=== PATIENT | male | born 1960 | race African-American/Black ===

== ENCOUNTER → 2018-03-27 | Outpatient (CLI) | payer OTHER ==
[~2018-03-27] MED LIST: ACIPHEX 20 MG T20 M1 PO; ASPIRIN EC81 M1 PO; CRESTOR10 MG PO; DIOVAN320 MG PO; OMEGA 3-6-9 CO1 EACH PO
--- NOTE | 2018-03-27 14:32 | EXE ---
[place] [address] STRESS ECHOCARDIOGRAM Name: RAVEN CAMARILLO Room: [facility]#: [id number] Admission: 03/27/18 Attend Phys: Jayden Grimm MD Discharge: Date of : 56 Date of Service: 03/27/18 1432 Report #: [id number] THIS REPORT FOR: //name// APPROVED REPORT Study performed: 03/27/2018 11:22:54 Exam: Stress Echocardiogram Indication: CAD , Dyspnea Patient Location: Out-Patient Stress Nurse: Candelaria Montano RN Supervising Physician: Ladarius Maldonado MD Status: routine Ht: 5 ft 10 in HR: 84 bpm BP: 107/79 mmHg Rhythm: NSR Medical History Cardiac Risk Factors: Hyperlipidemia, HTN, Pre Diabetes Procedure The patient underwent an Exercise Stress Test using the Bryan Protocol. Blood pressure, heart rate, and EKG were monitored. An Echocardiogram was performed by networking technician in four stages in quad fashion. At peak stress, four selected images were obtained and placed side by side with resting images for comparison. Echo Enhancing Agent Indication: Endocardial border delineation Agent(s) / Amount(s) Used: Optison 8 cc Stress Test Details Stress Test: Exercise stress testing was performed using a Bryan protocol. HR Resting HR: 84 bpm Max Heart Rate (APMHR): 161 bpm Max HR Achieved: 152 bpm Target HR (85% APMHR): 136 bpm % of APMHR: 94 Recovery HR: 106 bpm HR response to stress: Normal HR response to stress BP Resting BP: 107/79 [place] [address] STRESS ECHOCARDIOGRAM Name: RAVEN CAMARILLO Room: [facility]#: [id number] Admission: 03/27/18 Attend Phys: Jayden Grimm MD Discharge: Date of : 56 Date of Service: 03/27/18 1432 Report #: [id number] Max BP: 181/96 mmHg Recovery BP: 108/85 mmHg ECG Resting ECG: Sinus Rhythm Stress ECG: Sinus Tachycardia ST Change: None Arrhythmia: None Recovery ECG: Sinus Rhythm Recovery ST Change: None Recovery Arrhythmia: None Clinical Exercise duration: 7 min 1 sec Highest Stage Achieved: Stage 3: 3.4 mph at 14% grade. Exercise capacity: 8.59 METs The patient tolerated standard Bryan protocol exercise without significant symptoms. Stress ECG Conclusion The baseline 12-lead electrocardiogram showed sinus rhythm without significant ST or T wave abnormality. EKGs obtained during and post standard Bryan protocol exercise showed sinus rhythm and sinus tachycardia with no significant ST or T wave changes when compared to baseline. There were no stress-induced arrhythmias. Pre-Stress Echo The resting Echocardiogram showed normal left ventricular contractility with an estimated Ejection Fraction of about 55-60%. Post-Stress Echo The stress Echocardiogram showed normal left ventricular contractility with an estimated Ejection Fraction of about >70%. Clinical No clinical or ECG evidence for ischemia. Conclusion Clinical Response: Non-ischemic Exercise Capacity: Below Average Stress ECG Response: Non-ischemic Stress Echo Images: Non-ischemic Other Information [address] [address] STRESS ECHOCARDIOGRAM Name: MARQUISERAVEN Paulo Room: [facility]#: [id number] Admission: 03/27/18 Attend Phys: Jayden Grimm MD Discharge: Date of : 56 Date of Service: 03/27/181431 Report #: [id number] Technically limited study due to body habituspoor endocardial definition. <ELECTRONICALLY SIGNED> By: Ladarius Maldonado MD, FACC 03/27/181431 31 31 Ladarius Maldonado MD, FACC /INF
== END ==
LOC: M.CRD 10:28
DX: I25.10 Atherosclerotic heart disease of native coronary artery without angina pectoris (principal); R06.09 Other forms of dyspnea; I10 Essential (primary) hypertension; E11.9 Type 2 diabetes mellitus without complications; E78.5 Hyperlipidemia, unspecified